=== PATIENT | female | born 1975 | race Caucasian/White ===

== ENCOUNTER 2023-01-10 22:35 | Emergency (ER) | payer OTHER ==
[~2023-01-10] VITALS: Ht 160 cm; Wt 49.0 kg
[~2023-01-10 22:35] MED LIST: AMOXICILLIN500 MG PO; ASPIRIN E.C.325 MG PO; CENTRUM1 TA1 PO; CIPROFLOXACIN500 MG PO; DAYPRO600 MG PO; FLEXERIL5 MG PO; KLONOPIN0.5 MG PO; MOTRIN800 MG PO; NKHM; ORTHO TRI-CYCLE1 TA1 PO; PREDNISONE20 MG PO; PYRIDIUM200 MG PO; ULTRAM50 MG PO; VICODIN 5/500 505 MG PO
[2023-01-10 23:10] LABS: BASO # 0.1 10*3/uL (0.0-0.1); BASO % 0.4 % (0.0-1.0); EOS # 0.2 10*3/uL (0.0-0.4); EOS % 1.5 % (1.0-4.0); HEMATOCRIT 42.5 % (37.0-47.0); LYMPH # 3.5 10*3/uL (1.3-4.4); LYMPH % 24.1 % (27.0-41.0); MEAN CELL VOLUME 95.9 fl (81.0-99.0); MEAN CORPUSCULAR HGB 32.7 pg (27.0-31.0); MEAN CORPUSCULAR HGB CONC 34.1 g/dl (33.0-37.0); MONO # 0.9 10*3/uL (0.1-1.0); MONO % 6.3 % (3.0-9.0); NEUT # 9.7 10*3/uL (2.3-7.9); NEUT % 66.9 % (47.0-73.0); PLATELET COUNT AUTOMATED 327 10*3/uL (130-400); RED BLOOD COUNT 4.43 10*6/uL (4.10-5.10); RED CELL DISTRI WIDTH 12.4 % (0-14.5); WHITE BLOOD COUNT 14.4 10*3/uL (4.8-10.8)
[2023-01-10 23:33] LABS: ALKALINE PHOSPHATASE 73 U/L (46-116); BUN 8 mg/dl (9-23); CHLORIDE 107 mmol/L (98-107); LIPASE 38 U/L (12-53); POTASSIUM 3.3 mmol/L (3.4-5.1); SGPT/ALT 17 U/L (10-49)
== END 2023-01-11 01:00 | disposition short-term general hospital (02) ==
LOC: ED 22:35
PROVIDERS: Emergency Medicine
DX: S72.092A Other fracture of head and neck of left femur, initial encounter for closed fracture (principal); S73.005A Unspecified dislocation of left hip, initial encounter; Z98.51 Tubal ligation status; Z90.49 Acquired absence of other specified parts of digestive tract; Z98.890 Other specified postprocedural states; W35.XXXA Explosion and rupture of boiler, initial encounter; Y93.89 Activity, other specified; Y92.009 Unspecified place in unspecified non-institutional (private) residence as the place of occurrence of the external cause; Y99.8 Other external cause status